=== PATIENT | male | born 1990 | race American Indian/Alaskan Native ===

== ENCOUNTER 2022-05-05 09:18 | Outpatient (CLI) | payer OTHER ==
--- NOTE | 2022-05-05 09:57 | XRay Report ---
LEFT HAND 3 VIEWS INDICATION / CLINICAL INFORMATION: NERVE DAMAGE IN LEFT HAND. COMPARISON: None available. FINDINGS: BONES / JOINT(S): Evaluation is suboptimal due to all of the interphalangeal joints being in flexion. No significant arthritis. I see no evidence of acute fracture, subluxation or destructive lesion. SOFT TISSUES: No significant abnormality. ADDITIONAL FINDINGS: None. Signer Name: Adam Ackerman MD Signed: 05/05/2022 9:52 AM Workstation Name: [employer]
== END 2022-05-05 09:19 | disposition home or self-care (01) ==
LOC: XRAY 09:18
PROVIDERS: ATTEND Internal Medicine
DX: Z02.71 Encounter for disability determination (principal)